=== PATIENT | male | born 1995 | race Caucasian/White ===

== ENCOUNTER 2018-05-10 19:29 | Emergency (ER) | payer OTHER, SELFPAY ==
[2018-05-10 19:30] VITALS: BP 129/66; PULSE 69; PULSE 85; RESP 17; TEMP 36.3; O2SAT 96; BMI 23.9
--- NOTE | 2018-05-10 20:42 | ED.DCSUM_ITS ---
- ER Visit Summary Date of Service: 05/10/18 Chief Complaint: Left thumb laceration History of Present Illness: The patient is a 22 M who presents for a laceration of the left thumb. Patient was cutting carrots and accidentally cut the end of his thumb. He controlled bleeding with pressure. Tetanus is up-to-date. Patient is complaining of no pain or other injuries. Physical Examination: Is awake and alert sitting bed in no distress. Examination of the left hand shows a small avulsion flap to the distal tip of the thumb, with the attached flap in the mid tip and the point of cut on the radial side. No nailbed involvement. No bony exposure. Sensation and motor function intact. Brisk cap refill. Hemorrhage is controlled. Remainder of exam unremarkable. Test Results: [] Emergency Department Course and Treatment: Patient has no laceration amenable to suturing. He has the superficial flap on the distal tip of the thumb that is almost completely avulsed. It was removed with suture scissors. The wound was dressed and patient was given wound care instructions. Patient was discharged home. Treatment Plan: [] Disposition: [] Impression: Skin avulsion of the left thumb This note was generated with [employer] dictation software. It may contain incorrect words, spelling, and punctuation that were not noted in review of the chart ligia or to signing ED Disposition - Plan for ED Patient: Disposition: Home or Assisted Living Instructions: ED Laceration Hand Referrals: Care Physician,No Primary [Primary Care Provider] - Additional Instructions: Please keep the cut on your thumb covered and antibacterial ointment and bandaged until it has healed. You may clean it gently with warm water and mild soap. Do not soak it until it has healed. If you have any worsening of your condition or any new concerning symptoms, please return immediately to the emergency department for another evaluation.
[2018-05-10 21:09] VITALS: RESP 16
== END 2018-05-10 21:10 | disposition home or self-care (01) ==
PROVIDERS: Emergency Provider Emergency Medicine
DX: S61.002A Unspecified open wound of left thumb without damage to nail, initial encounter (principal); Z72.0 Tobacco use; W26.9XXA Contact with unspecified sharp object(s), initial encounter; Y93.G1 Activity, food preparation and clean up; Y92.000 Kitchen of unspecified non-institutional (private) residence as the place of occurrence of the external cause; Y99.8 Other external cause status
CPT/HCPCS: 99283

== ENCOUNTER 2021-07-23 04:17 | Emergency (ER) | payer OTHER, SELFPAY ==
[2021-07-23 04:18] VITALS: BP 127/85; PULSE 109; RESP 22; TEMP 36.6; O2SAT 98; BMI 22.1
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
[2021-07-23] MEDS: Ibuprofen 600 MG Tablet PO (04:52)
[2021-07-23 05:35] VITALS: BP 121/75; PULSE 78; RESP 16; O2SAT 99
== END 2021-07-23 05:36 | disposition home or self-care (01) ==
PROVIDERS: Emergency Provider Emergency Medicine; Visit Provider Emergency Medicine
DX: S02.2XXA Fracture of nasal bones, initial encounter for closed fracture (principal); S20.212A Contusion of left front wall of thorax, initial encounter; Y04.8XXA Assault by other bodily force, initial encounter; F17.210 Nicotine dependence, cigarettes, uncomplicated
CPT/HCPCS: 70450; 70486; 71046; 99283

== ENCOUNTER 2023-07-03 02:23 | Emergency (ER) | payer OTHER, SELFPAY ==
[2023-07-03 02:24] VITALS: BP 145/83; PULSE 84; RESP 16; TEMP 36.5; O2SAT 99; BMI 22.1
--- NOTE | 2023-07-03 02:45 | EDS_ITS ---
HPI History of Present Illness Chief Complaint: Dental Informant: patient Narrative Narrative: 27-year-old male started getting a tooth ache a day or so ago, but woke up with it swollen now in his right jaw. No fevers, chills, bleeding, foul taste in his mouth, or some other systemic symptoms. PFSH PFSH Medical History no medical history no medical history Home Medications ?Medication ?Instructions ?Recorded ?Last Taken ?Type amoxicillin 500 mg tablet 500 mg PO TID #30 tabs 07/03/23 Unknown Rx Allergy/AdvReac Type Severity Reaction Status Date / Time No Known Allergies Allergy Verified 07/03/23 02:24 Surgical History no surgical history Social History Smoking Status: Current every day smoker tobacco type: cigarettes and e- cigarettes ROS ROS ED Constitutional Constitutional ED: Denies chills or fever(s) Eyes Eyes: Denies change in vision or double vision ENT ENT ED: Reports dental pain; Denies sinus pain or throat swelling Cardiovascular Cardiovascular: Denies chest pain or palpitations Respiratory/Chest Respiratory/Chest: Denies cough or dyspnea Integumentary Denies abscess or rash Neurologic Neurologic: Denies headache(s), paresthesias or weakness EXAM Physical Exam Const Vital Signs: 07/03/23 02:24 Temperature 97.7 F L Temperature Source Temporal Pulse Rate 84 Respiratory Rate 16 Blood Pressure 145/83 H Blood Pressure Mean 103 Pulse Ox 99 Positive well nourished and well developed General Appearance ED: well developed and NAD HEENT HEENT Narrative: Severely decayed and tender right mandibular first molar, there is external swelling that is focal at the jawline, but intraorally I do not feel any collections near the mucosa or external to the gingiva. There is no bleeding from the gingiva or the tooth and no discharge or intraoral abscess. There is some mild trismus. Externally, the lesion that is swollen is not fluctuant. Face and Sinus: sinuses nontender Throat: posterior oropharynx normal Eyes PERRL and EOMs intact bilaterally Neck no lymphadenopathy and supple Resp normal respiratory effort Neuro oriented x3 and CN's II-XII intact bilaterally Sensorium / Orientation: alert Gait (Neuro): normal gait Psych mental status grossly normal and thought process normal Skin no rashes or lesions noted and no wounds MDM MDM MDM Narrative Medical decision making narrative: Consistent with an early dental abscess but nothing that appears to be drainable at this time. I advised him that that can change but for now would put him on antibiotics he is comfortable with that plan. Dental follow-up advised. Discharge Plan Triage Chief Complaint: Dental ED Provider: Yassine Barnett Dx/Rx/DC Orders Clinical Impression: Dental abscess, Infected dental caries Instructions: ED Tooth Abscess Prescriptions: New amoxicillin 500 mg tablet 500 mg PO TID Qty: 30 0RF Primary Care Provider: Care Physician,No Primary Referrals: Dentist,Your [STAFF PHYSICIAN] - As soon as possible Print Language: Frisian Disposition Disposition: Home, Self Care
[2023-07-03] MEDS: Ibuprofen 600 MG Tablet PO (03:08)
[2023-07-03] MEDS: AMOXICILLIN 500 MG CAPSULE PO (03:08)
== END 2023-07-03 03:15 | disposition home or self-care (01) ==
LOC: ED 02:49
PROVIDERS: Emergency Provider Emergency Medicine; Visit Provider Emergency Medicine
DX: K04.7 Periapical abscess without sinus (principal); F17.210 Nicotine dependence, cigarettes, uncomplicated; K02.9 Dental caries, unspecified; F17.290 Nicotine dependence, other tobacco product, uncomplicated
CPT/HCPCS: 99283